=== PATIENT | male | born 1940 | race Native Hawaiian/Other Pacific Islander ===

== ENCOUNTER 2016-06-22 08:46 | Outpatient (CLI) | payer OTHER ==
[~2016-06-22 08:46] MED LIST: ASA LO-DOSE81 MG PO; CARDIZEM LA360 MG PO; CARDURA4 MG PO; CLOP75TA2 PO; CLOTCRE EX; DIOVAN HCT320 MG/25 PO; EQ ASPIRIN325 MG OR; FEOSOL65 MG PO; HUMALOG100 MG/ML SC; HUMULIN 70/30 K1 INJ SC; LEVO0.0529 PO; LUNESTA3 MG OR; MOBIC7.5 M1 PO; NOVOLOG MIX 70/30 PR SC; PANT40TA PO; PRESERVISION PO; PROMAR OR; SIMV20TA2 PO; TAMS0.4C PO
[2016-06-22 09:09] LABS: PLATELET COUNT 246 K/uL (142-355)
[2016-06-23 14:40] LABS: POTASSIUM 3.8 mmol/L (3.6-5.2)
[2016-06-23 14:42] LABS: LDL CHOLESTEROL 138.3 mg/dL (0-99*)
== END 2016-06-22 22:56 | disposition home or self-care (01) ==
LOC: LABW 08:46
PROVIDERS: Internal Medicine
DX: E11.9 Type 2 diabetes mellitus without complications (principal)
CPT/HCPCS: 36415; 80053; 80061; 81000; 82043; 82570; 83036; 84439; 84443; 85027

== ENCOUNTER 2016-07-24 10:45 | Outpatient (CLI) | payer OTHER | END 2016-07-24 19:30 | disposition home or self-care (01) | LOC: RESP 10:45 | DX: R55 Syncope and collapse (principal) | CPT/HCPCS: 93225 ==

== ENCOUNTER 2016-07-29 07:27 | Outpatient (CLI) | payer OTHER | END 2016-07-29 22:48 | disposition home or self-care (01) | LOC: MRI 07:27 → US 09:00 → MRI 22:48 | DX: G45.9 Transient cerebral ischemic attack, unspecified (principal) ==

== ENCOUNTER 2016-08-05 07:45 | Outpatient (CLI) | payer OTHER | END 2016-08-05 19:09 | disposition home or self-care (01) | LOC: MRI 07:45 | DX: G45.9 Transient cerebral ischemic attack, unspecified (principal) ==

== ENCOUNTER 2016-11-24 13:46 | Outpatient (CLI) | payer OTHER | END 2016-11-24 14:55 | disposition home or self-care (01) | LOC: RAD 13:46 | DX: M79.672 Pain in left foot (principal) ==

== ENCOUNTER 2017-03-09 08:48 | Outpatient (CLI) | payer OTHER ==
[2017-03-09 09:04] LABS: PLATELET COUNT 254 K/uL (142-355)
[2017-03-09 09:38] LABS: POTASSIUM 3.8 mmol/L (3.6-5.2)
== END 2017-03-09 19:02 | disposition home or self-care (01) ==
LOC: LABW 08:48
PROVIDERS: Internal Medicine
DX: E11.9 Type 2 diabetes mellitus without complications (principal)
CPT/HCPCS: 36415; 80053; 80061; 81000; 82043; 82570; 83036; 84439; 84443; 85027

== ENCOUNTER 2017-11-19 08:38 | Outpatient (CLI) | payer OTHER ==
[2017-11-19 08:58] LABS: PLATELET COUNT 265 K/uL (142-355)
[2017-11-19 10:01] LABS: POTASSIUM 3.4 mmol/L (3.6-5.2)
== END 2017-11-19 19:12 | disposition home or self-care (01) ==
LOC: LABW 08:38
PROVIDERS: Internal Medicine
DX: E11.40 Type 2 diabetes mellitus with diabetic neuropathy, unspecified (principal); Z79.899 Other long term (current) drug therapy
CPT/HCPCS: 36415; 80053; 80061; 81000; 82043; 82570; 83036; 84443; 85027

== ENCOUNTER 2017-11-30 13:09 | Outpatient (CLI) | payer OTHER | END 2017-11-30 23:16 | disposition home or self-care (01) | LOC: MRI 13:09 | DX: M47.22 Other spondylosis with radiculopathy, cervical region (principal) ==

== ENCOUNTER 2018-02-01 09:00 | Outpatient (CLI) | payer OTHER ==
[2018-02-01 09:20] LABS: PLATELET COUNT 244 K/uL (142-355)
[2018-02-01 09:54] LABS: POTASSIUM 3.6 mmol/L (3.6-5.2); SODIUM 141 mmol/L (136-145)
== END 2018-02-01 23:28 | disposition home or self-care (01) ==
LOC: LABW 09:00
PROVIDERS: Internal Medicine
DX: Z00.00 Encounter for general adult medical examination without abnormal findings (principal); E11.9 Type 2 diabetes mellitus without complications; Z79.899 Other long term (current) drug therapy; Z12.5 Encounter for screening for malignant neoplasm of prostate
CPT/HCPCS: 36415; 80053; 80061; 81000; 84153; 84439; 84443; 85027

== ENCOUNTER 2018-02-15 09:37 | Outpatient (CLI) | payer OTHER ==
[2018-02-15] MEDS ORDERED: ZOFRAN8 MG PO (11:13)
[2018-02-15] MEDS ORDERED: AZIT250T3 PO (11:14)
[2018-02-15] MEDS ORDERED: BACLOFEN10 MG PO (11:15)
[2018-02-15] MEDS ORDERED: OXYC5TAB53 PO (11:16)
[2018-02-15] MEDS ORDERED: LACTULOSE PO (11:17)
[2018-02-15] MEDS ORDERED: UNITH DIRECT75 MCG PO (11:18)
[2018-02-15] MEDS ORDERED: AMBIEN5 MG PO (11:18)
[2018-02-15] MEDS ORDERED: CARDIZEM60 MG PO (11:21)
[2018-02-15] MEDS ORDERED: POTASSIUM CHLO20 ME1 PO (11:22)
== END 2018-02-15 22:27 | disposition home or self-care (01) ==
LOC: RAD 09:37
DX: J40 Bronchitis, not specified as acute or chronic (principal)

== ENCOUNTER 2018-02-15 10:05 | Emergency (ER) | payer OTHER ==
[~2018-02-15] VITALS: Ht 175.3 cm; Wt 105.2 kg
[2018-02-15 10:05] VITALS: TEMP 97.8
[2018-02-15 11:09] LABS: PLATELET COUNT 322 K/uL (142-355)
[2018-02-15] MEDS ORDERED: ZOFRAN8 MG PO (11:13)
[2018-02-15] MEDS ORDERED: AZIT250T3 PO (11:14)
[2018-02-15] MEDS ORDERED: BACLOFEN10 MG PO (11:15)
[2018-02-15] MEDS ORDERED: OXYC5TAB53 PO (11:16)
[2018-02-15] MEDS ORDERED: LACTULOSE PO (11:17)
[2018-02-15] MEDS ORDERED: UNITH DIRECT75 MCG PO (11:18)
[2018-02-15] MEDS ORDERED: AMBIEN5 MG PO (11:18)
[2018-02-15 11:19] LABS: POTASSIUM 3.5 mmol/L (3.6-5.2); SODIUM 136 mmol/L (136-145)
[2018-02-15] MEDS ORDERED: CARDIZEM60 MG PO (11:21)
[2018-02-15] MEDS ORDERED: POTASSIUM CHLO20 ME1 PO (11:22)
[2018-02-15 12:57] LABS: PARTIAL THROMBOPLASTIN TIME 22.4 SECONDS (24.5-33.6)
[2018-02-15 13:16] VITALS: BP 128/61
== END 2018-02-15 13:16 | disposition home or self-care (01) ==
LOC: ED 10:05
PROVIDERS: Family Medicine
DX: R55 Syncope and collapse (principal); Z72.820 Sleep deprivation; S00.83XA Contusion of other part of head, initial encounter; W19.XXXA Unspecified fall, initial encounter; Y93.89 Activity, other specified; Y92.89 Other specified places as the place of occurrence of the external cause
CPT/HCPCS: 36415; 80053; 84484; 85027; 85610; 85730; 93005; 99283

== ENCOUNTER 2018-05-03 10:28 | Outpatient (CLI) | payer OTHER ==
[~2018-05-03 10:28] MED LIST changes: +AMBIEN5 MG PO; +AZIT250T3 PO; +BACLOFEN10 MG PO; +CARDIZEM60 MG PO; +LACTULOSE PO; +OXYC5TAB53 PO; +POTASSIUM CHLO20 ME1 PO; +UNITH DIRECT75 MCG PO; +ZOFRAN8 MG PO
== END 2018-05-03 21:25 | disposition home or self-care (01) ==
LOC: RAD 10:28
DX: J40 Bronchitis, not specified as acute or chronic (principal)

== ENCOUNTER 2018-05-16 08:29 | Outpatient (CLI) | payer OTHER ==
[2018-05-16 09:05] LABS: POTASSIUM 3.4 mmol/L (3.6-5.2)
[2018-05-16 09:21] LABS: PLATELET COUNT 260 K/uL (142-355)
== END 2018-05-16 19:02 | disposition home or self-care (01) ==
LOC: LABW 08:29
PROVIDERS: Internal Medicine
DX: E11.9 Type 2 diabetes mellitus without complications (principal)
CPT/HCPCS: 36415; 80053; 80061; 81000; 82043; 82570; 83036; 84439; 84443; 85027

== ENCOUNTER 2018-06-28 10:52 | Emergency (ER) | payer OTHER ==
[~2018-06-28] VITALS: Ht 175.3 cm; Wt 100.7 kg
[2018-06-28] MEDS ORDERED: TAMS0.4C PO (11:42)
[2018-06-28] MEDS ORDERED: DOXAZOSIN4 M1 PO (11:42)
[2018-06-28 12:16] LABS: PLATELET COUNT 271 K/uL (142-355)
[2018-06-28 12:28] LABS: POTASSIUM 4.1 mmol/L (3.6-5.2)
[2018-06-28 14:14] VITALS: BP 124/60; TEMP 97.8
== END 2018-06-28 14:14 | disposition short-term general hospital (02) ==
LOC: ED 10:52
PROVIDERS: Family Medicine
DX: S62.634B Displaced fracture of distal phalanx of right ring finger, initial encounter for open fracture (principal); S62.636B Displaced fracture of distal phalanx of right little finger, initial encounter for open fracture; W29.8XXA Contact with other powered hand tools and household machinery, initial encounter; Y92.89 Other specified places as the place of occurrence of the external cause
CPT/HCPCS: 80053; 85027; 90715; 96372; 96374; 99284; J2175; J2550

== ENCOUNTER 2018-11-04 08:52 | Outpatient (CLI) | payer OTHER ==
[~2018-11-04 08:52] MED LIST changes: +DOXAZOSIN4 M1 PO
[2018-11-04 09:55] LABS: PLATELET COUNT 261 K/uL (142-355)
== END 2018-11-04 21:36 | disposition home or self-care (01) ==
LOC: LABW 08:52
PROVIDERS: Internal Medicine
DX: E11.9 Type 2 diabetes mellitus without complications (principal); E03.8 Other specified hypothyroidism
CPT/HCPCS: 36415; 80053; 80061; 81000; 82043; 82570; 83036; 84439; 84443; 85027

== ENCOUNTER 2019-05-16 09:05 | Outpatient (CLI) | payer OTHER ==
[2019-05-16 10:00] LABS: POTASSIUM 3.3 mmol/L (3.6-5.2)
[2019-05-16 10:22] LABS: PLATELET COUNT 260 K/uL (142-355)
== END 2019-05-16 20:07 | disposition home or self-care (01) ==
LOC: LABW 09:05
PROVIDERS: Internal Medicine
DX: E11.9 Type 2 diabetes mellitus without complications (principal)
CPT/HCPCS: 36415; 80053; 80061; 81000; 82043; 82570; 83036; 84439; 84443; 85027

== ENCOUNTER 2019-11-21 09:04 | Outpatient (CLI) | payer OTHER ==
[2019-11-21 09:28] LABS: POTASSIUM 3.6 mmol/L (3.6-5.2)
[2019-11-21 09:52] LABS: PLATELET COUNT 237 K/uL (142-355)
== END 2019-11-21 21:27 | disposition home or self-care (01) ==
LOC: LABW 09:04
PROVIDERS: Internal Medicine
DX: E03.8 Other specified hypothyroidism (principal); E11.9 Type 2 diabetes mellitus without complications
CPT/HCPCS: 36415; 80053; 80061; 81000; 82043; 82570; 83036; 84439; 84443; 85027

== ENCOUNTER 2019-12-20 08:04 | Outpatient (CLI) | payer OTHER ==
[2019-12-20 08:27] LABS: PLATELET COUNT 243 K/uL (142-355)
[2019-12-20 08:52] LABS: POTASSIUM 3.3 mmol/L (3.6-5.2)
== END 2019-12-20 19:01 | disposition home or self-care (01) ==
LOC: LABW 08:04
PROVIDERS: Internal Medicine
DX: R19.7 Diarrhea, unspecified (principal); R11.0 Nausea
CPT/HCPCS: 36415; 80053; 82272; 83630; 85027; 87015; 87045; 87324; 87328; 87329; 87449; 87507; 87899

== ENCOUNTER 2020-07-02 08:41 | Outpatient (CLI) | payer OTHER ==
[2020-07-02 09:01] LABS: POTASSIUM 4.6 mmol/L (3.6-5.2)
== END 2020-07-02 19:44 | disposition home or self-care (01) ==
LOC: LABW 08:41
PROVIDERS: ATTEND Internal Medicine Cardiovascular Disease
DX: R06.02 Shortness of breath (principal); Z79.899 Other long term (current) drug therapy
CPT/HCPCS: 36415; 80048; 83880

== ENCOUNTER 2020-10-01 12:38 | Outpatient (CLI) | payer OTHER | END 2020-10-01 19:50 | disposition home or self-care (01) | LOC: RAD 12:38 | PROVIDERS: ATTEND Internal Medicine | DX: R06.09 Other forms of dyspnea (principal) ==

== ENCOUNTER 2020-10-02 08:25 | Outpatient (CLI) | payer OTHER ==
[2020-10-02 08:58] LABS: PLATELET COUNT 231 K/uL (142-355)
[2020-10-02 09:41] LABS: POTASSIUM 3.4 mmol/L (3.6-5.2)
== END 2020-10-02 19:17 | disposition home or self-care (01) ==
LOC: LABW 08:25
PROVIDERS: ATTEND Internal Medicine
DX: R06.00 Dyspnea, unspecified (principal); E11.9 Type 2 diabetes mellitus without complications; E03.8 Other specified hypothyroidism
CPT/HCPCS: 36415; 80053; 80061; 83036; 83880; 84439; 84443; 85027; 85379

== ENCOUNTER 2021-01-10 08:47 | Outpatient (CLI) | payer OTHER | END 2021-01-10 23:05 | disposition home or self-care (01) | LOC: US 08:47 | PROVIDERS: ATTEND Internal Medicine Cardiovascular Disease | DX: R09.89 Other specified symptoms and signs involving the circulatory and respiratory systems (principal) ==

== ENCOUNTER 2021-07-09 11:17 | Outpatient (CLI) | payer OTHER ==
[2021-07-09 11:38] LABS: PLATELET COUNT 256 K/uL (142-355)
[2021-07-09 11:41] LABS: POTASSIUM 3.3 mmol/L (3.6-5.2)
== END 2021-07-09 18:59 | disposition home or self-care (01) ==
LOC: LABW 11:17
PROVIDERS: ATTEND Internal Medicine Cardiovascular Disease
DX: E11.9 Type 2 diabetes mellitus without complications (principal); Z79.899 Other long term (current) drug therapy; R06.02 Shortness of breath
CPT/HCPCS: 36415; 80048; 83036; 83880; 85027

== ENCOUNTER 2021-10-08 17:06 | Outpatient (CLI) | payer OTHER ==
[2021-10-08 17:49] LABS: POTASSIUM 4.8 mmol/L (3.6-5.2)
[2021-10-08 17:51] LABS: PLATELET COUNT 214 K/uL (142-355)
== END 2021-10-08 18:55 | disposition home or self-care (01) ==
LOC: LAB 17:06
PROVIDERS: ATTEND Internal Medicine
DX: E11.9 Type 2 diabetes mellitus without complications (principal)
CPT/HCPCS: 80053; 80061; 81000; 82043; 83036; 84439; 84443; 85027

== ENCOUNTER 2022-02-27 08:45 | Outpatient (CLI) | payer OTHER ==
[2022-02-27 09:06] LABS: PLATELET COUNT 295 K/uL (142-355)
[2022-02-27 09:24] LABS: POTASSIUM 3.4 mmol/L (3.6-5.2)
== END 2022-02-27 18:52 | disposition home or self-care (01) ==
LOC: LABW 08:45
PROVIDERS: ATTEND Internal Medicine Cardiovascular Disease
DX: Z79.899 Other long term (current) drug therapy (principal); E78.49 Other hyperlipidemia
CPT/HCPCS: 36415; 80053; 80061; 84443; 85027; 85652

== ENCOUNTER 2022-06-04 09:58 | Outpatient (CLI) | payer OTHER | END 2022-06-04 19:24 | disposition home or self-care (01) | LOC: RAD 09:58 | PROVIDERS: ATTEND Internal Medicine | DX: J40 Bronchitis, not specified as acute or chronic (principal) ==

== ENCOUNTER 2022-09-14 09:11 | Outpatient (CLI) | payer OTHER ==
[2022-09-14 09:34] LABS: PLATELET COUNT 226 K/uL (142-355)
[2022-09-14 09:53] LABS: POTASSIUM 3.2 mmol/L (3.6-5.2)
== END 2022-09-14 21:10 | disposition home or self-care (01) ==
LOC: LABW 09:11
PROVIDERS: ATTEND Internal Medicine
DX: E11.9 Type 2 diabetes mellitus without complications (principal)
CPT/HCPCS: 36415; 80053; 80061; 81002; 83036; 84439; 84443; 85027

== ENCOUNTER 2022-09-30 10:28 | Outpatient (CLI) | payer OTHER ==
[2022-09-30 10:57] LABS: POTASSIUM 3.5 mmol/L (3.6-5.2)
== END 2022-09-30 19:08 | disposition home or self-care (01) ==
LOC: LABW 10:28
PROVIDERS: ATTEND Internal Medicine Cardiovascular Disease
DX: Z79.899 Other long term (current) drug therapy (principal); I50.9 Heart failure, unspecified
CPT/HCPCS: 36415; 80048; 83880